=== PATIENT | male | born 1955 | race African-American/Black ===

== ENCOUNTER 2023-02-21 14:03 | Outpatient (OUT) | payer SELFPAY | END 2023-02-21 14:04 | disposition home or self-care (01) | LOC: PST 14:03 | PROVIDERS: Visit Provider Urology | DX: Z01.818 Encounter for other preprocedural examination (principal); R97.20 Elevated prostate specific antigen [PSA] ==

== ENCOUNTER 2023-02-22 11:32 | Day surgery (SDC) | payer MEDICARE, SELFPAY ==
[2023-02-22] MEDS: LIDOCAINE 2% JELLY 10 ML UR (12:51)
[2023-02-22] MEDS: LIDOCAINE HCL 1% 100 MG/10 ML MDV INJ (12:54)
[2023-02-22] MEDS: BACITRACIN OINTMENT 28.4 GM TUBE 1 APPLIC TOPICAL (13:11)
--- NOTE | 2023-02-22 13:21 | PC.NURSE ---
1314 patient finished with local procedure and is drinking water at tis time. Order is for patient to urinate before he can go home.
--- NOTE | 2023-02-22 13:21 | PM.URSON ---
Urology Surgery Operative Note Operative Note Procedure Date: 02/22/23 Time Out Performed: yes Pre-op Diagnosis: 1. Elevated PSA 2. Abnormal MRI Post-op Diagnosis: same as pre-op Procedures performed: 1. MRI fusion prostate biopsy, transperineal approach 2. Ultrasound for needle prostate biopsy, transperineal approach 3. Transrectal ultrasound of prostate and seminal vesicles 4. Nerve block of prostate Anesthesia: local Primary Surgeon: Josephine Borrero Complications: none Estimated blood loss (mL): 1 Findings: Small cysts in the apex. No discrete hypoechoic lesions. Left anterior prostate slightly larger than right. US calculated volume 59 cc (3.7 x 5.6 x 5.5 cm). SVs wnl. Fortec calculated prostate volume 62 cc. Specimens: 1. Right posterior medial (2 cores) 2. Right posterior lateral (2 cores) 3. Right base (2 cores) 4. Right anterior lateral (2 cores) 5. Right anterior medial (2 cores) 6. Left anterior medial (2 cores) 7. Left anterior lateral (2 cores) 8. Left base (2 cores) 9. Left posterior lateral (2 cores) 10. Left posterior medial (2 cores) 11. PRAVIN 1- left peripheral zone, mid gland(4 cores) Indications for Procedures: 67 year old male with history of elevated PSA 6.75, 48% free on 12/13/22 PSA density 0.11. MP-MRI prostate 01/24/23 showed PIRADS 4 lesion at left peripheral zone, mid gland. Prostate volume 81 ml. NAEL benign. After discussion of risks/benefits of management options and biopsy approaches, he elected to proceed with MRI fusion transperineal prostate biopsy under local. Risks were discussed to include but not limited to bleeding, pain, infection, damage to surrounding structures, hematuria, difficulty urinating, ecchymosis, swelling, injury from positioning, and need for additional procedures. Detailed description of Procedure: After informed consent was obtained, the patient was brought to the operating suite and transferred onto the operating table in supine position. Sequential compression devices were placed on bilateral lower extremities. He received the appropriate dose of preoperative oral antibiotics. He was positioned in the dorsal lithotomy position with scrotum secured out of the perineum with tape, and the appropriate pressure points padded, prepped and draped in the usual fashion for this procedure. An operative timeout was performed confirming the patient's identity, procedure and safety checks. Lidocaine gel was inserted per rectum. The [employer] MRI fusion biopsy system was set up on the patient's right side for transperineal approach of prostate biopsy. A well lubricated biplane transrectal ultrasound probe was inserted into the rectum and the prostate was aligned. The gland was visualized fully in axial and sagittal views to allow for identification of anatomy, volume and location of the urethra as noted in findings. The skin followed by periprostatic local anesthetic lidocaine 1% was delivered bilaterally, total 20 cc. The Precision Point device was placed on the ultrasound probe for transperineal approach. After rendering of real-time images with the preoperative MRI prostate, the UroNav fusion biopsy system was used to target the region of interest. Four core needle biopsies were obtained from the region of interest. Thereafter two biopsies were obtained in a systematic fashion from 10 regions of the prostate including the medial and lateral aspects of the anterior and posterior prostate, as well as base of the right and left lobes. The ultrasound probe was removed and the perineum was cleaned and dressed with antibiotic ointment, fluffs and scrotal support. The patient tolerated the procedure well and was sent to PACU in stable condition. Plan: Void prior to discharge home. Follow up in 1-2 weeks as scheduled for pathology review. Other Provider present: No Post Operative care instructions: see discharge instructions Attending Doc Confirm Attending Attestation: Yes
--- NOTE | 2023-02-22 14:00 | PC.NURSE ---
1330 patient urinated and was able to be discharged per order
== END 2023-02-22 13:31 | disposition home or self-care (01) ==
PROVIDERS: PCP Family Medicine; Visit Provider Urology
PROC: (CPT 55700; principal; 2023-02-22 12:30)
DX: C61 Malignant neoplasm of prostate (principal); R97.20 Elevated prostate specific antigen [PSA]; I10 Essential (primary) hypertension; G47.30 Sleep apnea, unspecified; N40.1 Benign prostatic hyperplasia with lower urinary tract symptoms; K76.0 Fatty (change of) liver, not elsewhere classified; Z87.891 Personal history of nicotine dependence; Z80.42 Family history of malignant neoplasm of prostate
CPT/HCPCS: 55700; 88305; 88342